=== PATIENT | female | born 1950 | race Caucasian/White ===

== ENCOUNTER 2021-01-08 05:48 | Inpatient (IN) | payer OTHER ==
[~2021-01-08] VITALS: Ht 152.4 cm; Wt 51.3 kg
[2021-01-08 07:52] LABS: HEMOGLOBIN 8.9 gm/dl (12.3-15.3); RED BLOOD COUNT 3.1 M/UL (4.00-5.10); WHITE BLOOD COUNT 11.5 K/UL (4.5-11.0)
[2021-01-08] MEDS ORDERED: PROAIR HFA8.5 GM INH (08:35)
[2021-01-08] MEDS ORDERED: ASPIRIN CHEWABL81 MG PO (08:36)
[2021-01-08] MEDS ORDERED: HYDROCODON-ACE1 EAC4 PO (08:39)
[2021-01-08] MEDS ORDERED: [UNRECOGNIZED DRUG - OTHER] MC (08:41)
[2021-01-08] MEDS ORDERED: ISOSORBIDE MONO30 MG PO (08:42)
[2021-01-08] MEDS ORDERED: LISINOPRIL5 MG PO (08:44)
[2021-01-08] MEDS ORDERED: RANEXA500 MG PO (08:45)
[2021-01-08] MEDS ORDERED: TOPROL XL 50 MG50 MG PO (08:45)
[2021-01-09 05:09] LABS: HEMOGLOBIN 9.7 gm/dl (12.3-15.3); RED BLOOD COUNT 3.37 M/UL (4.00-5.10); WHITE BLOOD COUNT 17.3 K/UL (4.5-11.0)
[2021-01-09 05:34] LABS: BUN/CREATININE RATIO 20 (0-10)
[2021-01-10 04:29] LABS: HEMOGLOBIN 9.5 gm/dl (12.3-15.3); RED BLOOD COUNT 3.25 M/UL (4.00-5.10)
[2021-01-10 04:34] LABS: WHITE BLOOD COUNT 11.8 K/UL (4.5-11.0)
[2021-01-10 04:50] LABS: BUN/CREATININE RATIO 13 (0-10)
[2021-01-11 06:25] LABS: RED BLOOD COUNT 3.45 M/UL (4.00-5.10); WHITE BLOOD COUNT 13.3 K/UL (4.5-11.0)
[2021-01-11 06:53] LABS: BUN/CREATININE RATIO 18 (0-10)
--- NOTE | 2021-01-11 10:21 | NUR ---
PATIENT HAS ATTEMPTED TO GET OUT OF BED UNASSISTED MULTIPLE TIMES. EDUCATED ON RISK OF FALLING WITH HEPARIN GTT EACH TIME. BED ALARM TURNED ON AND PATIENT AGAIN REMINDED NOT TO ATTEMPT TO GET OUT OF BED WITHOUT A NURSE AT BEDSIDE. EDUCATED ON USING CALL LIGHT WELL. WILL CONTINUE TO MONITOR. PT HAS BEEN TAKEN TO E[employer] TEACHER AT THIS TIME.
--- NOTE | 2021-01-11 19:56 | NUR ---
PATIENT AGITATED. PATIENT STATES "THEY PUT PEPPER ON MY BACK AND IT ITCHES. THERE ARE HIVES". SKIN VISUALIZED, NO ISSUES NOTED, NO HIVES OR REDNESS. SCATTERED SCABBING AND SORES NOTED THAT WERE ALSO PRESENT ON ADMISSION. MD NOTIFIED AND NEW ORDER RECEIVED FOR PHENERGAN. PATIENT REFUSED PHENERGAN AND YELLED "I DON'T WANT THAT, I AM IN PAIN". PATIENT ASKED TO CLARIFY AND STATED THAT "WHEN I SAY I'M ITCHING THAT MEANS PAIN". PATIENT EDUCATED ON THE DIFFERENCE BETWEEN ITCHING AND PAIN AND THE DIFFERENCE IN THE MEDICATION FOR EACH ITCHING AND PAIN ARE TREATED DIFFERENTLY. PATIENT NONCOMPLIANT WITH CARE. PATIENT PULLS OFF LEADS, BLOOD PRESSURE CUFF. PATIENT ALSO REMOVED DSTAT DRESSING ON CATH SITE AND HAS CLIMBED OUT OF BED UNASSISTED SEVERAL TIMES. BED ALARM IS ON AND PATIENT HAS BEEN EDUCATED MULTIPLE TIMES ON IMPORTANCE OF NOT GETTING OUT OF BED WITHOUT HELP. PATIENT STATES "I DON'T CARE". PATIENT HAS BEEN EDUCATED ON FALL PREVENTION AND SAFETY AND VERBALIZES UNDERSTANDING BUT ALSO VERBALIZES DISREGARD. REINFORCEMENT REQUIRED. DOOR OPEN FOR VISUALIZATION OF PATIENT FOR PATIENT SAFETY AND BED ALARM ON.
[2021-01-11 20:05] LABS: HEMOGLOBIN 10.3 gm/dl (12.3-15.3); RED BLOOD COUNT 3.53 M/UL (4.00-5.10); WHITE BLOOD COUNT 11.2 K/UL (4.5-11.0)
--- NOTE | 2021-01-11 20:43 | NUR ---
BED ALARM TRIGGERED PATIENT GETS OUT OF BED, PULLING OFF LEADS AND CORDS. PATIENT PULLS AT [place] AND SCREAMS AT STAFF. PATIENT ASSISTED BACK INTO BED AND VELASCO CATH REMOVED AT THIS TIME FOR PATIENT SAFETY AND COMFORT. EDUCATION ON FALL PREVENTION AND SAFETY REVIEWED AT THIS TIME. PATIENT RESISTANT TO EDUCATION. BED ALARM IN PLACE, DOOR OPEN FOR VISUALIZATION AND SAFETY.
[2021-01-12 03:07] LABS: HEMOGLOBIN 9.8 gm/dl (12.3-15.3); RED BLOOD COUNT 3.43 M/UL (4.00-5.10); WHITE BLOOD COUNT 11.9 K/UL (4.5-11.0)
[2021-01-12 03:28] LABS: BUN/CREATININE RATIO 16 (0-10)
--- NOTE | 2021-01-12 04:06 | NUR ---
LAB CALLED WITH GLUCOSE RESULT OF 42. 1 AMP OF D50 GIVEN. GLUCOSE FINGER STICK CHECKED 15 MINUTES AFTER ADMINISTRATION READS 216. WILL CONTINUE TO MONITOR FINGER STICKS. PATIENT AWAKE AND ALERT TO BASELINE MENTAL STATUS.
--- NOTE | 2021-01-12 11:33 | NUR ---
AT 0845 PT COMPLAINED OF CHEST, ARM, GUM AND EAR PAIN. STAT EKG OBTAINED DUE TO RECENT NSTEMI AND HEART CATH. MD NOTIFIED. NEW ORDER OBTAINED. PT ALSO GIVEN PRN MORPHINE. SEE EMAR. PT ALSO APPEARED TO HAVING SWELLING OF THE LOWER LIP. MD NOTIFIED. ORDER OBTAINED FOR BENEDRYL. PT IS REFUSING BENEDRYL AT THIS TIME AND SAYS IT DOES NOT WORL FOR HER. NOT DIFFICULTY BREATHING NOTED. PT ON RM AIR, REFUSING TO WEAR NC ORDERED. NO DIFFICULTY SWALLOWING NOTED. NO OTHER APPARENT SWELLING. WILL CONTINUE TO MONIOR.
[2021-01-12] MEDS ORDERED: NITROGLYCERIN0.4 MG SL (14:20)
[2021-01-13 02:49] LABS: HEMOGLOBIN 9.1 gm/dl (12.3-15.3); RED BLOOD COUNT 3.18 M/UL (4.00-5.10); WHITE BLOOD COUNT 12.9 K/UL (4.5-11.0)
[2021-01-13 03:12] LABS: BUN/CREATININE RATIO 17 (0-10)
--- NOTE | 2021-01-13 14:00 | NUR ---
NO CHANGE FROM PREVIOUS ASSESSMENT
[2021-01-14] MEDS ORDERED: ASPIRIN EC81 MG PO (11:17)
[2021-01-14] MEDS ORDERED: ISOSORBIDE MONO60 MG PO (11:17)
[2021-01-30] MEDS ORDERED: MYCOSTATIN100000 UTS PO (15:39)
[2021-02-03] MEDS ORDERED: LIPITOR80 MG PO (08:36)
[2021-02-03] MEDS ORDERED: CELEXA40 MG PO (08:37)
[2021-02-03] MEDS ORDERED: BUMETANIDE2 MG PO (08:37)
[2021-02-03] MEDS ORDERED: CORTEF20 MG PO (08:39)
[2021-02-03] MEDS ORDERED: SYNTHROID75 MCG PO (08:43)
[2021-02-03] MEDS ORDERED: PREVACID30 MG PO (08:45)
[2021-02-03] MEDS ORDERED: BRILINTA90 MG PO (08:46)
== END 2021-01-14 12:12 | disposition home or self-care (01) | DRG 246 ==
LOC: CCU 06:51 → PROG CARE 06:51
PROVIDERS: Internal Medicine; Internal Medicine Interventional Cardiology; Physician Assistant Medical; ADMIT Internal Medicine
PROC: 027034Z Dilation of Coronary Artery, One Artery with Drug-eluting Intraluminal Device, Percutaneous Approach (ICD-10-PCS; principal; 2021-01-11)
PROC: B2110ZZ Fluoroscopy of Multiple Coronary Arteries using High Osmolar Contrast (ICD-10-PCS; 2021-01-11)
DX: I21.4 Non-ST elevation (NSTEMI) myocardial infarction (principal); I50.43 Acute on chronic combined systolic (congestive) and diastolic (congestive) heart failure; G93.49 Other encephalopathy; I11.0 Hypertensive heart disease with heart failure; Z20.822 Contact with and (suspected) exposure to COVID-19; I25.10 Atherosclerotic heart disease of native coronary artery without angina pectoris; L89.322 Pressure ulcer of left buttock, stage 2; E78.5 Hyperlipidemia, unspecified; F17.210 Nicotine dependence, cigarettes, uncomplicated; E11.65 Type 2 diabetes mellitus with hyperglycemia; Z96.698 Presence of other orthopedic joint implants; E11.649 Type 2 diabetes mellitus with hypoglycemia without coma; G89.29 Other chronic pain; E03.9 Hypothyroidism, unspecified; N20.0 Calculus of kidney; L50.8 Other urticaria; E87.6 Hypokalemia; R53.81 Other malaise; Z96.41 Presence of insulin pump (external) (internal); I45.81 Long QT syndrome; Z95.5 Presence of coronary angioplasty implant and graft; Z79.82 Long term (current) use of aspirin; Z90.710 Acquired absence of both cervix and uterus; Z90.49 Acquired absence of other specified parts of digestive tract; Z95.1 Presence of aortocoronary bypass graft; Z98.42 Cataract extraction status, left eye; Z98.41 Cataract extraction status, right eye; Z88.8 Allergy status to other drugs, medicaments and biological substances; Z79.4 Long term (current) use of insulin; Z83.6 Family history of other diseases of the respiratory system; Z83.3 Family history of diabetes mellitus; Z82.49 Family history of ischemic heart disease and other diseases of the circulatory system
CPT/HCPCS: ECHO; 36415; 71045; 76705; 80048; 80053; 80061; 81001; 82550; 82553; 82962; 83036; 83605; 83735; 83880; 84100; 84132; 84439; 84443; 84484; 85025; 85027; 85347; 85610; 85730; 86140; 87040; 93005; 93306; 94664; 94760; 97110-GP-CQ; 97162; 97530-GP-CQ; 99152; 99153; C1725; C1874; C1887; C9113; C9600; J0461; J1335; J1644; J1940; J2250; J2270; J2550; J3010; J3246; J7040; Q9965

== ENCOUNTER 2021-02-03 10:49 | Observation (INO) | payer OTHER ==
[~2021-02-03] VITALS: Ht 152.4 cm; Wt 67.6 kg
[~2021-02-03 10:49] MED LIST: ASPIRIN CHEWABL81 MG PO; ASPIRIN EC81 MG PO; BRILINTA90 MG PO; BUMETANIDE2 MG PO; CELEXA40 MG PO; CORTEF20 MG PO; HYDROCODON-ACE1 EAC4 PO; ISOSORBIDE MONO30 MG PO; ISOSORBIDE MONO60 MG PO; LIPITOR80 MG PO; LISINOPRIL5 MG PO; MYCOSTATIN100000 UTS PO; NITROGLYCERIN0.4 MG SL; PREVACID30 MG PO; PROAIR HFA8.5 GM INH; RANEXA500 MG PO; SYNTHROID75 MCG PO; TOPROL XL 50 MG50 MG PO; [UNRECOGNIZED DRUG - OTHER] MC
[2021-02-03 12:07] LABS: HEMOGLOBIN 9.6 gm/dl (12.3-15.3); RED BLOOD COUNT 3.42 M/UL (4.00-5.10); WHITE BLOOD COUNT 13.9 K/UL (4.5-11.0)
[2021-02-03 12:46] LABS: BUN/CREATININE RATIO 14 (0-10)
[2021-02-03] MEDS ORDERED: MOBIC7.5 MG PO (15:40)
[2021-02-03] MEDS ORDERED: NOVOLOG 10100 UNITS/ INJ (15:40)
[2021-02-03] MEDS ORDERED: ENTRESTO 24 MG1 EACH PO (15:41)
[2021-02-03] MEDS ORDERED: K-DUR TAB 20 M20 MEQ PO (15:41)
[2021-02-03] MEDS ORDERED: ZAROXOLYN/DIUL2.5 MG PO (15:42)
[2021-02-03] MEDS ORDERED: PLAVIX 75 MG TA75 MG PO (15:42)
[2021-02-03] MEDS ORDERED: ISOSORBIDE MONO60 MG PO (16:56)
[2021-02-03] MEDS ORDERED: CORTEF 10MG TAB10 MG PO (16:58)
--- NOTE | 2021-02-03 18:13 | NUR ---
BLOOD GLUCOSE 158. INSULIN PUMP NOTED. PATIENT STATED 6 UNITS PER PUMP.
[2021-02-04 01:19] LABS: HEMOGLOBIN 8.5 gm/dl (12.3-15.3)
[2021-02-04 01:20] LABS: RED BLOOD COUNT 3.04 M/UL (4.00-5.10); WHITE BLOOD COUNT 10.3 K/UL (4.5-11.0)
== END 2021-02-04 12:46 | disposition home or self-care (01) ==
LOC: ER1 10:49 → CDU 14:17 → M/S 16:11
PROVIDERS: Physician Assistant Medical; ADMIT Internal Medicine
DX: I11.0 Hypertensive heart disease with heart failure (principal); I50.43 Acute on chronic combined systolic (congestive) and diastolic (congestive) heart failure; I25.10 Atherosclerotic heart disease of native coronary artery without angina pectoris; I21.4 Non-ST elevation (NSTEMI) myocardial infarction; E03.9 Hypothyroidism, unspecified; E10.9 Type 1 diabetes mellitus without complications; E78.5 Hyperlipidemia, unspecified; J44.9 Chronic obstructive pulmonary disease, unspecified; D64.9 Anemia, unspecified; F17.210 Nicotine dependence, cigarettes, uncomplicated; Z20.822 Contact with and (suspected) exposure to COVID-19; Z79.82 Long term (current) use of aspirin; Z79.899 Other long term (current) drug therapy; Z88.1 Allergy status to other antibiotic agents; Z95.1 Presence of aortocoronary bypass graft; Z96.41 Presence of insulin pump (external) (internal); Z79.52 Long term (current) use of systemic steroids; Z95.5 Presence of coronary angioplasty implant and graft
CPT/HCPCS: 36415; 71045; 80048; 80053; 82550; 82553; 82962; 83735; 83874; 83880; 84484; 85025; 85027; 93005; 96374; 99285; G0378; U0002

== ENCOUNTER 2021-03-27 17:34 | Emergency (ER) | payer OTHER ==
[~2021-03-27 17:34] MED LIST changes: +CORTEF 10MG TAB10 MG PO; +ENTRESTO 24 MG1 EACH PO; +K-DUR TAB 20 M20 MEQ PO; +MOBIC7.5 MG PO; +NOVOLOG 10100 UNITS/ INJ; +PLAVIX 75 MG TA75 MG PO; +ZAROXOLYN/DIUL2.5 MG PO
[2021-03-27 18:09] LABS: HEMOGLOBIN 9.3 gm/dl (12.3-15.3); RED BLOOD COUNT 3.7 M/UL (4.00-5.10); WHITE BLOOD COUNT 11.7 K/UL (4.5-11.0)
== END 2021-03-27 18:50 | disposition expired ==
LOC: ER1 17:34
PROVIDERS: Physician Assistant
DX: R07.9 Chest pain, unspecified (principal); R06.02 Shortness of breath; E11.9 Type 2 diabetes mellitus without complications; I11.0 Hypertensive heart disease with heart failure; I50.9 Heart failure, unspecified; M19.90 Unspecified osteoarthritis, unspecified site; Z90.710 Acquired absence of both cervix and uterus; Z20.822 Contact with and (suspected) exposure to COVID-19
CPT/HCPCS: 71045; 80053; 82550; 82553; 83874; 84484; 85025; 93005; 99285; U0002

== ENCOUNTER → 2021-09-04 | Outpatient (CLI) | payer OTHER | LOC: HEART 5 09:13 | DX: I11.0 Hypertensive heart disease with heart failure (principal); I50.9 Heart failure, unspecified; I25.10 Atherosclerotic heart disease of native coronary artery without angina pectoris; I07.1 Rheumatic tricuspid insufficiency | CPT/HCPCS: 93306 ==